=== PATIENT | male | born 1990 | race Two or more races ===

== ENCOUNTER 2020-12-14 22:19 | Inpatient (IN) | payer OTHER ==
[2020-12-14 23:02] VITALS: BMI 19.9
[2020-12-15] MEDS ORDERED: MAGNESIUM CITRATE 300 ML BOTTLE PO PRN (01:19)
[2020-12-15] MEDS ORDERED: IBUPROFEN 400 MG TABLET (FP) PO PRN (01:19)
[2020-12-15] MEDS ORDERED: ACETAMINOPHEN 325 MG TABLET (FP) PO PRN ×2 (01:19)
[2020-12-15] MEDS ORDERED: cloNIDine HCL 0.1 MG TABLET PO PRN (01:19)
[2020-12-15] MEDS ORDERED: hydrOXYzine PAMOATE 25 MG CAPSULE (FP) PO PRN (01:19)
[2020-12-15] MEDS ORDERED: MENTHOL/PHENOL 1 EACH UD MM PRN ×2 (01:19→01:30)
[2020-12-15] MEDS ORDERED: methaDONE HCL 10 MG TABLET (FOR DETOX USE ONLY) PO ONE (01:19)
[2020-12-15] MEDS ORDERED: BISMUTH SUBSALICYLATE 524 MG/30 ML PO PRN (01:19)
[2020-12-15] MEDS ORDERED: METHOCARBAMOL 500 MG TABLET PO PRN (01:19)
[2020-12-15] MEDS ORDERED: MAGNESIUM HYDROX 2400MG/30ML ORAL SUSPENSION 30 ML CUP PO PRN (01:19)
[2020-12-15] MEDS ORDERED: ONDANSETRON *ODT* 4 MG TABLET SL PRN (01:19)
[2020-12-15] MEDS ORDERED: MAG HYDROX/AL HYDROX/SIMETH 30 ML UNIT-DOSE CUP PO PRN (01:19)
[2020-12-15] MEDS ORDERED: methaDONE HCL 10 MG TABLET (FOR DETOX USE ONLY) ONE (03:29)
[2020-12-15] MEDS: NICOTINE POLACRILEX 4 MG GUM BUC PRN ×3 (03:36→22:47)
[2020-12-15] MEDS: NICOTINE 21 MG/24 HOURS TOPICAL PATCH TD SCH (10:51)
[2020-12-15] MEDS: PRENATAL VITAMINS W/ FOLIC ACID TABLET (FP) PO SCH (10:52)
[2020-12-15] MEDS ORDERED: MELATONIN 5 MG TABLETS PO SCH (22:00)
[2020-12-15] MEDS ORDERED: THIAMINE HCL 100 MG TABLET (FP) PO SCH (22:00)
[2020-12-16 09:02] VITALS: PULSE 61; TEMP 96.8
[2020-12-16 09:17] VITALS: BP 126/87
[2020-12-16] MEDS ORDERED: methaDONE HCL 10 MG TABLET (FOR DETOX USE ONLY) ONE (09:34)
[2020-12-16] MEDS: PRENATAL VITAMINS W/ FOLIC ACID TABLET (FP) PO SCH (10:17)
[2020-12-16] MEDS: NICOTINE 21 MG/24 HOURS TOPICAL PATCH TD SCH (10:17)
[2020-12-17] MEDS ORDERED: methaDONE HCL 10 MG TABLET (FOR DETOX USE ONLY) PO ONE (10:00)
[2020-12-19] MEDS ORDERED: methaDONE HCL 10 MG TABLET (FOR DETOX USE ONLY) PO ONE (10:00)
== END 2020-12-16 10:13 | disposition left against medical advice (07) | DRG 770 ==
LOC: YASAS 22:19 → Y3N 12-15 02:51
PROVIDERS: ADMIT Allergy & Immunology; ATTEND Allergy & Immunology
PROC: HZ2ZZZZ Detoxification Services for Substance Abuse Treatment (ICD-10-PCS; principal; 2020-12-15)
DX: F11.23 Opioid dependence with withdrawal (principal); F14.20 Cocaine dependence, uncomplicated; F12.20 Cannabis dependence, uncomplicated; F17.210 Nicotine dependence, cigarettes, uncomplicated; F41.8 Other specified anxiety disorders; G47.00 Insomnia, unspecified; R00.1 Bradycardia, unspecified
CPT/HCPCS: 93005; 93010; C9803; U0003; U0005